=== PATIENT | male | born 1995 | race Two or more races ===

== ENCOUNTER 2017-12-22 03:59 | Emergency (ER) | payer SELFPAY ==
[~2017-12-22] VITALS: Ht 172.7 cm; Wt 86.2 kg
[2017-12-22 04:37] LABS: Basophils # (auto) 0.1 uL; Basophils % (auto) 0.5 % (0.0-2.0); Eosinophils # (auto) 0 uL; Eosinophils % (auto) 0.1 % (0.0-7.0); Hematocrit 49.6 % (41.0-53.0); Hemoglobin 16.9 g/dL (13.5-17.5); Lymphocytes # (auto) 1.6 uL; Lymphocytes % (auto) 13.9 % (10.0-50.0); Mean Corpuscular Hemoglobin 30.9 pg (28.0-32.0); Mean Corpuscular Hgb Conc. 34.1 g/dL (32.0-36.0); Mean Corpuscular Volume 90.8 fL (80.0-100.0); Monocytes # (auto) 0.6 uL; Monocytes % (auto) 5.5 % (0.0-12.0); Platelet Count (auto) 238 10^3/uL (140-450); Red Blood Cells 5.46 10^6/uL (4.5-5.90); White Blood Cell 11.2 10^3/uL (4.4-10.8)
[2017-12-22] MEDS ORDERED: SODIUM CHLORIDE 0.9% 1,000 ML IV ONE (04:45)
[2017-12-22 05:01] LABS: Alanine Aminotransferase 23 U/L (16-61); Albumin 4.8 g/dL (3.4-5.0); Alkaline Phosphatase 90 U/L (45-117); Anion Gap 11 (5-15); Aspartate Aminotransferase 41 U/L (15-37); BUN/Creatinine Ratio 9.7; Bilirubin, Total 0.4 mg/dL (0.2-1.0); Blood Alcohol < 3.0 mg/dL (0-5); Blood Urea Nitrogen 14 mg/dL (7-18); Carbon Dioxide 21 mmol/L (21-32); Chloride 108 mmol/L (98-107); GFR African American 78 mL/min; GFR Non-African American 64 mL/min; Glucose 111 mg/dL (74-106); Magnesium 2.3 mg/dL (1.6-2.6); Potassium 3.5 mmol/L (3.5-5.1); Sodium 140 mmol/L (136-145); Total Protein 8.8 g/dL (6.4-8.2)
[2017-12-22 05:06] LABS: Urine Bacteria FEW /hpf (None Seen); Urine Blood Negative /uL (Negative); Urine Hyaline Cast MOD /lpf (0 - 2); Urine Mucus FEW (None Seen); Urine WBC 2 /hpf (0 - 3)
[2017-12-22] MEDS ORDERED: diphenhdrAMINE HCL 50 MG/1 ML VL ONE (05:12)
[2017-12-22] MEDS ORDERED: HALOPERIDOL LACTATE 5 MG/ML INJ VIAL ONE (05:12)
[2017-12-22] MEDS ORDERED: LORazepam 2MG/ML-1ML VIAL ONE (05:12)
[2017-12-22 05:22] LABS: Amphetamine Screen, Urine NEGATIVE (NEGATIVE); Barbiturate Scree,Urine NEGATIVE (NEGATIVE); Benzodiazephine Screen, Urine NEGATIVE (NEGATIVE); Cannabinoid Screen, Urine POSITIVE (NEGATIVE); Cocaine Screen, Urine NEGATIVE (NEGATIVE); Opiate Scree,Urine NEGATIVE (NEGATIVE); Phencyclidine Screen, Urine NEGATIVE (NEGATIVE)
[2017-12-22] MEDS ORDERED: diphenhdrAMINE HCL 50 MG/1 ML VL IV ONE (05:45)
[2017-12-22] MEDS ORDERED: HALOPERIDOL LACTATE 5 MG/ML INJ VIAL IM ONE (05:45)
[2017-12-22] MEDS ORDERED: LORazepam 2MG/ML-1ML VIAL IV ONE (05:45)
[2017-12-22 12:20] VITALS: BP 113/63
== END 2017-12-22 13:22 | disposition home or self-care (01) ==
LOC: EDBD 03:59 → EDUNIT# 03:59 → ER 04:05
DX: G92 Toxic encephalopathy (principal); R41.82 Altered mental status, unspecified; F12.90 Cannabis use, unspecified, uncomplicated
CPT/HCPCS: 36415; 51702; 70450; 80053; 80307; 80320; 81001; 83735; 84484; 85025; 94761; 96361; 96372; 96374; 96375; 99285; J1200; J1630; J2060